=== PATIENT | male | born 1960 | race Caucasian/White ===

== ENCOUNTER 2020-04-06 21:02 | Emergency (ER) | payer BC, SELFPAY ==
[2020-04-06 21:11] VITALS: BP 116/80; PULSE 85; RESP 16; TEMP 36.3; O2SAT 95; BMI 29.0
--- NOTE | 2020-04-06 23:30 | DI.RAD.S_ITS ---
PROCEDURE: XR FINGER LT MIN 2V INDICATIONS: Foreign body in the thumb TECHNIQUE: AP hand, 2 views of the left 1st finger(s) acquired. COMPARISON: None. FINDINGS: Bones: No fractures or dislocations. No suspicious bony lesions. Soft tissues: No suspicious soft tissue calcifications. Tip of metallic fishhook noted in the palmar soft tissues of the thumb adjacent to the 1st DIP joint IMPRESSION: Tip of metallic fishhook in the soft tissues of the left thumb. Dictated by: Sherri Johnson MD, PhD on 04/07/2020 at 8:46 Approved by: Sherri Johnson MD, PhD on 04/07/2020 at 8:47
--- NOTE | 2020-04-06 23:31 | ED.UPPEXIN ---
HPI - Extremity Injury (Upper) General Chief Complaint: Extremity Injury, Upper Stated Complaint: fish hook in finger Time Seen by Provider: 04/06/20 23:27 Source: patient History of Present Illness HPI narrative: Patient complains of a fishhook in left thumb. He was able to cut off part of the fishhook. However part of the hook is still embedded in the volar surface of the interphalangeal joint area. Related Data Previous Rx's Medication Instructions Recorded cephalexin 500 mg PO TID #15 tab 04/07/20 Allergies Allergy/AdvReac Type Severity Reaction Status Date / Time Iodinated Contrast Media Allergy Severe Anaphylaxis Verified 04/07/20 00:42 Review of Systems Review of Systems Narrative: GENERAL: Denies chills, fatigue, malaise, fever, sweats. HEENT: Denies sinus pain, ear pain, sore throat, difficulty swallowing, dizziness. RESPIRATORY: Denies dyspnea, cough, wheezing, hemoptysis, sputum. CARDIOVASCULAR: Denies chest pain, palpitations, orthopnea, edema, GASTROINTESTINAL: Denies nausea, vomiting, abdominal pain, diarrhea, constipation, melena. : Denies dysuria, frequency, incontinence, hematuria, urinary retention. MUSCULOSKELETAL: Complains of thumb pain SKIN: Denies rash, skin lesions, or other NEUROLOGIC: Denies weakness, headache, numbness, change in speech, confusion, seizures, incoordination. PSYCHIATRIC: No concerning psychosocial issues. ROS Unobtainable: All systems reviewed & are unremarkable except as noted in HPI and below Patient History Social History Smoking Status: Never smoker Smoking Status: Never smoker alcohol intake frequency: holidays/special occasions only Substance Use Type: does not use Exam Narrative Exam Narrative: GENERAL: patient appears stated age. Well-nourished, well-developed patient, in no distress, not toxic EXTREMITIES: Examination left thumb, palpable foreign body at the volar surface of the IP joint. No bleeding. Sensate intact to light touch. Able to flex at the IP joint but does have mild pain. No bleeding. No discharge. NEURO: AOx3. SKIN: No rash or erythema of visible areas PSYCH: Not anxious, is cooperative Initial Vital Signs Initial Vital Signs: Vital Signs Temperature 97.4 F L 04/06/20 21:11 Pulse Rate 85 04/06/20 21:11 Respiratory Rate 16 04/06/20 21:11 Blood Pressure 116/80 04/06/20 21:11 Pulse Oximetry 95 04/06/20 21:11 Procedures Foreign Body OTHER Time Out Performed: yes Site: left and other (Thumb) Description of foreign body: fish hook Sedation/Analgesia: none Technique: removal with forceps Confirmed by:: direct visualization Complications: none Post-procedure exam: awake, alert Neurovascular: normal distal pulse, normal capillary fill, distal light touch sensation intact, distal motor function normal and no signs of compartment syndrome Course Orders Ordered: ED Orders 04/06/20 23:30 XR finger LT min 2V Stat Discontinued Medications Bacitracin (Bacitracin) 1 applic TOP NOW ONE Stop: 04/07/20 01:13 Last Admin: 04/07/20 01:18 Dose: 1 applic Documented by: BRITTNI Cephalexin HCl (Keflex) 500 mg PO NOW ONE Stop: 04/07/20 01:15 Last Admin: 04/07/20 01:18 Dose: 500 mg Documented by: BRITTNI Diphtheria/Tetanus/Acell Pertussis (Adacel) 0.5 ml IM .ONCE ONE Stop: 04/06/20 23:31 Last Admin: 04/06/20 23:40 Dose: 0.5 ml Documented by: BRITTNI Lidocaine HCl (Xylocaine 1% (Pf)) 2 ml SUBCUT NOW ONE Stop: 04/07/20 00:42 Last Admin: 04/07/20 00:50 Dose: 2 ml Documented by: BRITTNI Vital Signs Vital signs: Vital Signs - 8 hr 04/06/20 21:11 04/07/20 01:28 Temperature 97.4 F L Pulse Rate 85 70 Respiratory Rate 16 Blood Pressure 116/80 Pulse Oximetry 95 98 MDM - Extremity Injury (Upper) Differential Diagnosis Differential diagnosis: Likely other (Foreign body) Imaging Data X-ray left thumb: My Impression: Metallic foreign body volar surface of digit above the IP joint Discharge Plan Departure Patient Disposition: Home Clinical Impression: [place] injury to finger Qualifiers: Encounter type: initial encounter Laterality: left Qualified Code(s): S69.92XA - Unspecified injury of left wrist, hand and finger(s), initial encounter Discharge Date/Time: 04/07/20 01:30 Instructions: DI for Puncture Wound Activity Restrictions/Additional Instructions: Clean wound twice daily with warm soap and water then topical antibiotic. May shower. No some urgency of thumb under water. See family doctor in a week for recheck. Return if worse if any fever chills or discharge from the thumb or redness of the thumb or increased pain. Prescriptions: New cephalexin 500 mg tablet 500 mg PO TID Qty: 15 RF: 0
[2020-04-06] MEDS: TET,DIPH,PERTUSS(ACELL),VAC/PF 0.5 ML SYRINGE IM (23:40)
[2020-04-07] MEDS: LIDOCAINE 1% (PF) 2 ML SUBCUT (00:50)
[2020-04-07] MEDS: BACITRACIN OINT 0.9 GM PCKT 1 APPLIC TOP (01:18)
[2020-04-07] MEDS: cephALEXin 250 MG CAPSULE 500 MG PO (01:18)
[2020-04-07 01:28] VITALS: PULSE 70; O2SAT 98
== END 2020-04-07 01:30 | disposition home or self-care (01) ==
PROVIDERS: Emergency Provider Emergency Medicine
DX: S60.352A Superficial foreign body of left thumb, initial encounter (principal); S69.92XA Unspecified injury of left wrist, hand and finger(s), initial encounter; Z23 Encounter for immunization
CPT/HCPCS: 73140; 90471; 99283; 90715

== ENCOUNTER 2021-05-15 19:29 | Emergency (ER) | payer BC, SELFPAY ==
[2021-05-15 19:33] VITALS: BP 132/93; PULSE 106; RESP 22; TEMP 37; O2SAT 100
[2021-05-15] MEDS: SODIUM CHLORIDE 0.9% 1,000 ML 1000 ML IV ×2 (19:50→21:02)
[2021-05-15 20:06] LABS: Add Manual Diff / Slide Review NO; Basophils Absolute Auto 0 /uL (0-100); Basophils Percent Auto 0.3 % (0-2); Eosinophils Absolute Auto 100 /uL (0-450); Eosinophils Percent Auto 1.3 % (2-4); Hematocrit 44.4 % (41-53); Hemoglobin 15.3 g/dL (13.5-17.5); Lymphocytes Absolute Auto 1200 /uL (1100-4500); Lymphocytes Percent Auto 13.3 % (25-40); Mean Corpuscular HGB Conc 34.3 % (30-36); Mean Corpuscular Hemoglobin 30.9 PG (26-34); Mean Corpuscular Volume 89.9 fL (80-100); Monocytes Absolute Auto 900 /uL (0-900); Monocytes Percent Auto 9.3 % (3-14); Neutrophils Absolute Auto 7100 /uL (1500-7000); Neutrophils Percent Auto 75.8 % (50-75); Platelet Count 216 X10^3/uL (150-400); Red Blood Cell Count 4.94 X10^6/uL (4.5-5.9); Red Cell Distribution Width 11.9 % (11.6-14.8); White Blood Cell Count 9.3 X10^3/uL (4.5-11.0)
[2021-05-15 20:14] LABS: Lactate (Lactic Acid) 0.8 mmol/L (0.7-2.1)
[2021-05-15 20:15] LABS: Alanine Aminotransferase 19 IU/L (<50); Albumin 4.6 g/dL (3.5-5.0); Albumin Globulin Ratio 1.3 (1.0-2.8); Alkaline Phosphatase 72 U/L (38-126); Aspartate Aminotransferase 26 IU/L (17-59); BUN Creatinine Ratio 13.9 (6-22); Bilirubin Total 0.8 mg/dL (0.2-1.3); Blood Urea Nitrogen 11 mg/dL (9-20); Calcium 9.9 mg/dL (8.4-10.2); Carbon Dioxide 24 mmol/L (22-32); Chloride 102 mmol/L (98-107); Estimated Glomerular Filt Rate > 60.0 mL/min (>60); Globulin 3.5 g/dL (1.7-4.1); Glucose 127 mg/dL (80-110); HEMOLYSIS < 15 (0-50); Sodium 136 mmol/L (137-145); Total Protein 8.1 g/dL (6.3-8.2)
[2021-05-15 20:42] VITALS: PULSE 88; O2SAT 96
--- NOTE | 2021-05-15 20:43 | ED_ITS ---
HPI - Nausea/Vomiting/Diarrhea General Chief complaint: Nausea/Vomiting/Diarrhea Stated complaint: N/V/D Time Seen by Provider: 05/15/21 19:39 Source: patient Mode of arrival: EMS History of Present Illness HPI Narrative: 60-year-old male who just over 1 week ago surgery on his left shoulder. He has had a follow-up with Orthopedics since then. When they took the stitches out of his shoulder there was concern about a small infection and so he was started on antibiotics. He has been taking Keflex for the past couple days. Starting last evening he has had multiple episodes of vomiting and diarrhea. No fevers. Did have some nausea medicine at home that he took prior to arrival but has still been vomiting. Related Data Previous Rx's Medication Instructions Recorded cephalexin 500 mg tablet 500 mg PO TID #15 tab 04/07/20 ondansetron 4 mg disintegrating 4 mg PO Q6H PRN #14 tab 05/15/21 tablet Allergies Allergy/AdvReac Type Severity Reaction Status Date / Time Iodinated Contrast Media Allergy Severe Anaphylaxis Verified 04/07/20 00:42 Review of Systems Constitutional Constitutional: Reports as per HPI and Reports system reviewed and no additional complaints, except as documented Gastrointestinal Gastrointestinal: Reports as per HPI and Reports system reviewed and no additional complaints, except as documented Musculoskeletal Musculoskeletal: Reports system reviewed and no additional complaints, except as documented and Reports as per HPI Hematologic/Lymphatic On Anticoagulants: No Patient History Medical History Healthy adult Social History Smoking Status: Never smoker Smoking Status: Never smoker alcohol intake frequency: holidays/special occasions only Substance Use Type: does not use Exam Initial Vital Signs Initial Vital Signs: Vital Signs Temperature 98.6 F 05/15/21 19:33 Pulse Rate 106 H 05/15/21 19:33 Respiratory Rate 22 05/15/21 19:33 Blood Pressure 132/93 H 05/15/21 19:33 Pulse Oximetry 100 05/15/21 19:33 HENMT Head: normal to inspection and normocephalic Resp Effort & Inspection: normal respiratory effort Auscultation: clear to auscultation bilaterally Cardio Rate: regular rate Rhythm: regular rhythm GI Inspection: normal to inspection Palpation: soft and No tender Skin General: no rashes or lesions noted Neuro General: patient alert and patient awake Extrem General: normal to inspection and capillary refill normal Other: The incision sites in his left shoulder appear well. There are pop in place. There is no signs of erythema. Psych Appearance: grossly normal and well kempt Course Orders Ordered: ED Orders 05/15/21 19:50 Complete Blood Count AUTO DIFF Stat Comprehensive Metabolic Panel Stat Lactate (Lactic Acid) Stat 05/15/21 20:30 GI Panel (Film Array) Stat 05/15/21 20:37 Blood Culture Stat Discontinued Medications Sodium Chloride (Normal Saline 0.9%) 1,000 mls @ 1,000 mls/hr IV BOLUS ONE Stop: 05/15/21 20:38 Last Infusion: 05/15/21 21:03 Dose: 0 mls/hr Documented by: Admin: 05/15/21 19:50 Dose: 1,000 mls/hr Documented by: JEANNIE Sodium Chloride (Normal Saline 0.9%) 1,000 mls @ 1,000 mls/hr IV BOLUS ONE Stop: 05/15/21 21:56 Last Infusion: 05/15/21 22:03 Dose: 0 mls/hr Documented by: Admin: 05/15/21 21:02 Dose: 1,000 mls/hr Documented by: JEANNIE Morphine Sulfate (Morphine 4 Mg/Ml Inj) 4 mg IV NOW ONE Stop: 05/15/21 20:58 Last Admin: 05/15/21 21:02 Dose: 4 mg Documented by: JEANNIE Ondansetron HCl (Ondansetron 4 Mg/2 Ml Inj) 4 mg IV NOW ONE Stop: 05/15/21 20:58 Last Admin: 05/15/21 21:02 Dose: 4 mg Documented by: JEANNIE Ondansetron HCl (Ondansetron 4 Mg Odt Prepack) 1 bottle MISC SEEINSTR ONE Stop: 05/15/21 23:34 Last Admin: 05/15/21 23:39 Dose: 1 bottle Documented by: JEANNIE Vital Signs Vital signs: Vital Signs - 8 hr 05/15/21 19:33 05/15/21 20:42 05/15/21 20:44 Temperature 98.6 F Pulse Rate 106 H 88 86 Respiratory Rate 22 Blood Pressure 132/93 H 135/89 Pulse Oximetry 100 96 97 05/15/21 23:25 Temperature 98.2 F Pulse Rate 87 Respiratory Rate Blood Pressure 125/75 Pulse Oximetry 96 MDM - Nausea/Vomiting/Diarrhea Lab Data Attestation: I reviewed the patient's lab results. Result diagrams: 05/15/21 19:50 05/15/21 19:50 Labs: Lab Results 05/15/21 05/15/21 05/15/21 Range/Units 19:50 19:50 19:50 WBC 9.3 (4.5-11.0) X10^3/uL RBC 4.94 (4.5-5.9) X10^6/uL Hgb 15.3 (13.5-17.5) g/dL Hct 44.4 (41-53) % MCV 89.9 (80-100) fL MCH 30.9 (26-34) PG MCHC 34.3 (30-36) % RDW 11.9 (11.6-14.8) % Plt Count 216 (150-400) X10^3/uL Neut % (Auto) 75.8 H (50-75) % Lymph % (Auto) 13.3 L (25-40) % [place] % (Auto) 9.3 (3-14) % Eos % (Auto) 1.3 L (2-4) % Baso % (Auto) 0.3 (0-2) % Neut # (Auto) 7100 H (2131-6656) /uL Lymph # (Auto) 1200 (0716-7479) /uL [place] # (Auto) 900 (0-900) /uL Eos # (Auto) 100 (0-450) /uL Baso # (Auto) 0 (0-100) /uL Sodium 136 L (137-145) mmol/L Potassium 4.0 (3.4-5.1) mmol/L Chloride 102 (98-107) mmol/L Carbon Dioxide 24 (22-32) mmol/L BUN 11 (9-20) mg/dL Creatinine 0.79 (0.66-1.25) mg/dL Estimated GFR > 60.0 (>60) mL/min BUN/Creatinine Ratio 13.9 (6-22) Glucose 127 H (80-110) mg/dL Lactate 0.8 (0.7-2.1) mmol/L Calcium 9.9 (8.4-10.2) mg/dL Total Bilirubin 0.8 (0.2-1.3) mg/dL AST 26 (17-59) IU/L ALT 19 (<50) IU/L Alkaline Phosphatase 72 (38-126) U/L Total Protein 8.1 (6.3-8.2) g/dL Albumin 4.6 (3.5-5.0) g/dL Globulin 3.5 (1.7-4.1) g/dL Albumin/Globulin Ratio 1.3 (1.0-2.8) Stl C. cayetanensis PCR (Not Detect) Stool Rotavirus (PCR) (Not Detect) Stool Adenovirus (PCR) (Not Detect) Stool Astrovirus (PCR) (Not Detect) Stool Cryptosporidium PCR (Not Detect) Stl E.coli Shiga Tox PCR (Not Detect) St Sh/Enteroin Ecoli PCR (Not Detect) Stool E coli O157 PCR Stl Enterotoxigenic E PCR (Not Detect) Stool EPEC (PCR) (Not Detect) Stl E. histolytica PCR (Not Detect) Stool Giardia Lamblia PCR (Not Detect) Stool Sapovirus (PCR) (Not Detect) Stl P. shigelloides PCR (Not Detect) St Y.enterocolitica PCR (Not Detect) Stool Vibrio (PCR) (Not Detect) Stl Vibrio cholerae PCR (Not Detect) Stl Enteroaggr Ecoli PCR (Not Detect) Stl Norovirus GI/GII PCR (Not Detect) Campylobacter (PCR) (Not Detect) C. difficile Tox (PCR) (Not Detect) Salmonella (PCR) (Not Detect) 05/15/21 Range/Units 20:30 WBC (4.5-11.0) X10^3/uL RBC (4.5-5.9) X10^6/uL Hgb (13.5-17.5) g/dL Hct (41-53) % MCV (80-100) fL MCH (26-34) PG MCHC (30-36) % RDW (11.6-14.8) % Plt Count (150-400) X10^3/uL Neut % (Auto) (50-75) % Lymph % (Auto) (25-40) % [place] % (Auto) (3-14) % Eos % (Auto) (2-4) % Baso % (Auto) (0-2) % Neut # (Auto) (1388-0874) /uL Lymph # (Auto) (3546-3112) /uL [place] # (Auto) (0-900) /uL Eos # (Auto) (0-450) /uL Baso # (Auto) (0-100) /uL Sodium (137-145) mmol/L Potassium (3.4-5.1) mmol/L Chloride (98-107) mmol/L Carbon Dioxide (22-32) mmol/L BUN (9-20) mg/dL Creatinine (0.66-1.25) mg/dL Estimated GFR (>60) mL/min BUN/Creatinine Ratio (6-22) Glucose (80-110) mg/dL Lactate (0.7-2.1) mmol/L Calcium (8.4-10.2) mg/dL Total Bilirubin (0.2-1.3) mg/dL AST (17-59) IU/L ALT (<50) IU/L Alkaline Phosphatase (38-126) U/L Total Protein (6.3-8.2) g/dL Albumin (3.5-5.0) g/dL Globulin (1.7-4.1) g/dL Albumin/Globulin Ratio (1.0-2.8) Stl C. cayetanensis PCR Not detected (Not Detect) Stool Rotavirus (PCR) Not detected (Not Detect) Stool Adenovirus (PCR) Not detected (Not Detect) Stool Astrovirus (PCR) Not detected (Not Detect) Stool Cryptosporidium PCR Not detected (Not Detect) Stl E.coli Shiga Tox PCR Not detected (Not Detect) St Sh/Enteroin Ecoli PCR Not detected (Not Detect) Stool E coli O157 PCR Not Reportable Stl Enterotoxigenic E PCR Not detected (Not Detect) Stool EPEC (PCR) Not detected (Not Detect) Stl E. histolytica PCR Not detected (Not Detect) Stool Giardia Lamblia PCR Not detected (Not Detect) Stool Sapovirus (PCR) Not detected (Not Detect) Stl P. shigelloides PCR Not detected (Not Detect) St Y.enterocolitica PCR Not detected (Not Detect) Stool Vibrio (PCR) Not detected (Not Detect) Stl Vibrio cholerae PCR Not detected (Not Detect) Stl Enteroaggr Ecoli PCR Not detected (Not Detect) Stl Norovirus GI/GII PCR Not detected (Not Detect) Campylobacter (PCR) Not detected (Not Detect) C. difficile Tox (PCR) Not detected (Not Detect) Salmonella (PCR) Not detected (Not Detect) MDM Narrative Medical decision making narrative: Patient received fluids. His labs are reassuring. Stool studies do not show any signs of Clostridium difficile. I do not believe that this is an allergic reaction to his antibiotics. Had no further vomiting during his time here in the ER. No indication for switching his antibiotics. Informed him that he should continue to take probiotics. I feel that we can hold on any radiologic studies for now. He was given return precautions and follow-up instructions. He expressed understanding and agreement. Discharge Plan Departure Patient Disposition: Home Clinical Impression: Vomiting and diarrhea Instructions: DI for Nausea -- Adult, DI for Vomiting -- Adult Activity Restrictions/Additional Instructions: The stool samples were still pending at the time of your discharge. I will contact you in the morning if we need to start you on any antibiotics because of the findings of this. Increase your fluid intake. I do recommend that you continue to take probiotics. Return to the emergency department for any new or worsening symptoms Prescriptions: New ondansetron 4 mg tablet,disintegrating 4 mg PO Q6H PRN (Reason: nausea and vomiting) Qty: 14 RF: 0 No Action cephalexin 500 mg tablet 500 mg PO TID Qty: 15 RF: 0
[2021-05-15 20:44] VITALS: BP 135/89; PULSE 86; O2SAT 97
[2021-05-15] MEDS: MORPHINE 4 MG/ML INJ IV (21:02)
[2021-05-15] MEDS: ONDANSETRON 4 MG/2 ML INJ IV (21:02)
[2021-05-15 23:25] VITALS: BP 125/75; PULSE 87; TEMP 36.8; O2SAT 96
[2021-05-15] MEDS: ONDANSETRON 4 MG ODT PREPACK 1 BOTTLE MISC (23:39)
[2021-05-16 00:40] LABS: Adenovirus F 40/41 Not Detected (Not Detect); Astrovirus Not Detected (Not Detect); Campylobacter Not Detected (Not Detect); Clostridium difficile toxin AB Not Detected (Not Detect); Cryptosporidium Not Detected (Not Detect); Cyclospora cayetanensis Not Detected (Not Detect); Entamoeba histolytica Not Detected (Not Detect); Enteroaggregative E.coli Not Detected (Not Detect); Enteropathogenic E.coli Not Detected (Not Detect); Enterotoxigenic E.coli It/st Not Detected (Not Detect); Giardia lamblia Not Detected (Not Detect); Norovirus GI/GII Not Detected (Not Detect); Plesiomonsa shigelloides Not Detected (Not Detect); Rotavirus A Not Detected (Not Detect); Salmonella Not Detected (Not Detect); Sapovirus Not Detected (Not Detect); Shiga-like toxin-prod E.coli Not Detected (Not Detect); Shigella/Enteroinvasive E.coli Not Detected (Not Detect); Vibrio Not Detected (Not Detect); Vibrio cholerae Not Detected (Not Detect); Yersinia enterocolitica Not Detected (Not Detect)
== END 2021-05-15 23:45 | disposition home or self-care (01) ==
PROVIDERS: Emergency Provider Emergency Medicine
DX: R11.2 Nausea with vomiting, unspecified (principal); R19.7 Diarrhea, unspecified
CPT/HCPCS: 36415; 80053; 83605; 85025; 87040; 87507; 96361; 96374; 96375; 99284; J2270; J2405

== ENCOUNTER → 2022-02-05 17:20 | Outpatient (CLI) | payer BC, SELFPAY | PROVIDERS: Visit Provider Physician Assistant | DX: L98.9 Disorder of the skin and subcutaneous tissue, unspecified (principal) | CPT/HCPCS: 87070; 87075; 87205 ==

== ENCOUNTER 2022-11-15 09:02 | Emergency (ER) | payer BC, SELFPAY ==
[2022-11-15] VITALS (15 sets, daily range): BP systolic 113–149; BP diastolic 68–88; PULSE 83–92; RESP 11–20; TEMP 36.8; O2SAT 93–99; BMI 27.1
[2022-11-15] MEDS: SODIUM CHLORIDE 0.9% 1,000 ML 1000 ML IV (09:35)
[2022-11-15 09:42] LABS: Add Manual Diff / Slide Review NO; Basophils Absolute Auto 100 /uL (0-100); Basophils Percent Auto 0.7 % (0-2); Eosinophils Absolute Auto 100 /uL (0-450); Eosinophils Percent Auto 1.3 % (2-4); Hematocrit 44.1 % (41-53); Lymphocytes Absolute Auto 2700 /uL (1100-4500); Lymphocytes Percent Auto 38.3 % (25-40); Mean Corpuscular HGB Conc 34.1 % (30-36); Mean Corpuscular Hemoglobin 29.5 PG (26-34); Mean Corpuscular Volume 86.7 fL (80-100); Monocytes Absolute Auto 600 /uL (0-900); Monocytes Percent Auto 8.1 % (3-14); Neutrophils Absolute Auto 3700 /uL (1500-7000); Neutrophils Percent Auto 51.6 % (50-75); Platelet Count 243 X10^3/uL (150-400); Red Blood Cell Count 5.09 X10^6/uL (4.5-5.9); Red Cell Distribution Width 13.5 % (11.6-14.8); White Blood Cell Count 7.1 X10^3/uL (4.5-11.0)
[2022-11-15 10:00] LABS: Alanine Aminotransferase 30 IU/L (<50); Albumin 4.6 g/dL (3.5-5.0); Albumin Globulin Ratio 1.3 (1.0-2.8); Alkaline Phosphatase 79 U/L (38-126); Aspartate Aminotransferase 28 IU/L (17-59); BUN Creatinine Ratio 21.3 (6-22); Bilirubin Total 0.4 mg/dL (0.2-1.3); Blood Urea Nitrogen 16 mg/dL (9-20); Carbon Dioxide 29 mmol/L (22-32); Chloride 98 mmol/L (98-107); Estimated Glomerular Filt Rate > 60 mL/min (>60); Globulin 3.6 g/dL (1.7-4.1); Glucose 107 mg/dL (80-110); HEMOLYSIS < 15 (0-50); Lipase 84 U/L (23-300); Sodium 137 mmol/L (137-145); Total Protein 8.2 g/dL (6.3-8.2)
--- NOTE | 2022-11-15 11:09 | DI.CT.S_ITS ---
PROCEDURE: CT ABDOMEN PELVIS WO CON INDICATIONS: LLQ pain. GI Bleed. TECHNIQUE: Noncontrast 5 mm thick sections acquired from the diaphragms to the symphysis. 5 mm coronal and sagittal reformats were then performed. For radiation dose reduction, the following was used: automated exposure control, adjustment of mA and/or kV according to patient size. COMPARISON: None. FINDINGS: Image quality: Suboptimal due to noncontrast technique. ABDOMEN: Lung bases: Lung bases are clear. Heart size is normal. Solid organs: Liver is normal in size. Gallbladder is unremarkable . Pancreas is normal in contours. Spleen is normal in size. No adrenal nodules. Kidneys are normal in size, without hydronephrosis or nephrolithiasis. Peritoneum and bowel: Unenhanced bowel loops demonstrate normal wall thickness and caliber. No free fluid or air. No evidence of diverticulitis. Nodes and vessels: No retroperitoneal or mesenteric adenopathy by size criteria. Aorta and inferior vena cava are normal in caliber. Miscellaneous: Small, midline ventral hernia containing fat PELVIS: Genitourinary: Bladder wall thickness is normal. Miscellaneous: No inguinal hernias or adenopathy. Bones: No suspicious bony lesions. No vertebral body compression fractures. Surgical fusion L3 through L5. Suspect donor site of bone graft off the right iliac bone. IMPRESSION: Suboptimal evaluation due to noncontrast technique. Active GI hemorrhage cannot be excluded. No evidence of colitis or diverticulitis. Dictated by: Enoc Drake M.D. on 11/15/2022 at 11:33 Approved by: Enoc Drake M.D. on 11/15/2022 at 11:36
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
[2022-11-15 11:49] LABS: Bacteria Urine None Seen; Culture Indicated Urine Cult Not Indicated; RBC Urine 0-1/HPF (0-5/HPF); Squamous Epithelial Cell Urine None Seen (0-5/HPF); WBC Urine 0-1/HPF (0-5/HPF)
[2022-11-15] MEDS: ACETAMINOPHEN 325 MG TABLET 650 MG PO (14:29)
[2022-11-15] MEDS: ONDANSETRON 4 MG ODT PO (14:29)
== END 2022-11-15 15:21 | disposition home or self-care (01) ==
PROVIDERS: Emergency Provider Emergency Medicine; PCP Family Medicine
DX: K92.2 Gastrointestinal hemorrhage, unspecified (principal); K29.70 Gastritis, unspecified, without bleeding; R19.7 Diarrhea, unspecified; R10.32 Left lower quadrant pain
CPT/HCPCS: 36415; 74176; 80053; 81003; 81015; 82272; 83690; 85025; 93005; 96360; 99284

== ENCOUNTER → 2023-03-26 06:57 | Outpatient (CLI) | payer BC, SELFPAY ==
[2023-03-26 07:53] LABS: Add Manual Diff / Slide Review NO; Basophils Absolute Auto 0 /uL (0-100); Basophils Percent Auto 0.7 % (0-2); Eosinophils Absolute Auto 200 /uL (0-450); Eosinophils Percent Auto 2.9 % (2-4); Hematocrit 41.6 % (41-53); Hemoglobin 14.7 g/dL (13.5-17.5); Lymphocytes Absolute Auto 2500 /uL (1100-4500); Lymphocytes Percent Auto 42.2 % (25-40); Mean Corpuscular HGB Conc 35.2 % (30-36); Monocytes Absolute Auto 600 /uL (0-900); Monocytes Percent Auto 10.7 % (3-14); Neutrophils Absolute Auto 2600 /uL (1500-7000); Neutrophils Percent Auto 43.5 % (50-75); Platelet Count 203 X10^3/uL (150-400); Red Blood Cell Count 4.73 X10^6/uL (4.5-5.9); Red Cell Distribution Width 13.3 % (11.6-14.8); White Blood Cell Count 5.9 X10^3/uL (4.5-11.0)
[2023-03-26 08:15] LABS: Cholesterol 193 mg/dL (140-199); HDL Cholesterol 52 mg/dL (40-60); LDL Cholesterol Calculated 87 mg/dL (<100); Triglycerides 271 mg/dL (35-150)
[2023-03-26 08:39] LABS: TSH w/ Reflex to FT4 4.58 uIU/mL (0.47-4.68)
[2023-03-26 10:32] LABS: Creatinine Urine Random 304.9 mg/dL
[2023-03-26 10:37] LABS: Microalbumi Creatinin Ratio Ur 2.9 ug/mg CR (<30); Microalbumin Urine Random 0.9 mg/dL (0-1.6)
[2023-03-27 02:57] LABS: x Labcorp Estim. Avg Glu (eAG) 123 mg/dL (.); x Labcorp Hemoglobin A1c 5.9 % (4.8-5.6)
== END ==
PROVIDERS: PCP Family Medicine; Referring Provider Family Medicine; Visit Provider Family Medicine
DX: G89.29 Other chronic pain (principal); I10 Essential (primary) hypertension; M54.50 Low back pain, unspecified; R73.9 Hyperglycemia, unspecified; Z98.1 Arthrodesis status
CPT/HCPCS: 80061; 82043; 82570; 83036; 84443; 85025

== ENCOUNTER → 2023-09-25 08:56 | Outpatient (CLI) | payer BC, SELFPAY | PROVIDERS: PCP Family Medicine; Visit Provider Nurse Practitioner Family | DX: J02.9 Acute pharyngitis, unspecified (principal) | CPT/HCPCS: 87070 ==

== ENCOUNTER → 2024-03-19 07:14 | Outpatient (CLI) | payer MEDICARE, OTHER, SELFPAY ==
--- NOTE | 2024-03-19 07:16 | DI.US.S_ITS ---
PROCEDURE: US CAROTID DOPPLER BI INDICATIONS: VISION CHANGES TECHNIQUE: Color and pulse Doppler interrogation was performed of both carotid systems, with image documentation and velocity measurements. COMPARISON: None. FINDINGS: Stenosis calculations are based on SRU (Society of Radiologists in Ultrasound) criteria. Right side: Brachial blood pressure: 132/87 mm Hg. Common carotid artery peak systolic velocity: 80 cm/sec. Internal carotid artery peak systolic velocity: 77 cm/sec. Internal carotid artery end diastolic velocity: 20 cm/sec. External carotid artery peak systolic velocity: 65 cm/sec. ICA/CCA peak systolic ratio: 1.0. Arthur scale imaging description: No significant atherosclerotic plaques are seen. Percent internal carotid artery stenosis: Normal. Vertebral artery: Flow direction is antegrade. Left side: Brachial blood pressure: 131/83 mm Hg. Common carotid artery peak systolic velocity: 101 cm/sec. Internal carotid artery peak systolic velocity: 57 cm/sec. Internal carotid artery end diastolic velocity: 24 cm/sec. External carotid artery peak systolic velocity: 74 cm/sec. ICA/CCA peak systolic ratio: 0.6. Arthur scale imaging description: Mild atherosclerotic plaques are noted in distal common carotid artery/carotid bulb. Percent internal carotid artery stenosis: Less than 50 percent.. Vertebral artery: Flow direction is antegrade. IMPRESSION: 1. No hemodynamically significant stenosis are seen in right internal carotid artery. 2. Less than 50 percent stenosis is seen in proximal left internal carotid artery. 3. Antegrade flow is seen in bilateral vertebral arteries. Dictated by: Jeffry Donald M.D. on 03/19/2024 at 11:06 Approved by: Jeffry Donald M.D. on 03/19/2024 at 11:08
== END ==
PROVIDERS: PCP Family Medicine; Referring Provider Physician Assistant; Visit Provider Physician Assistant
DX: I65.22 Occlusion and stenosis of left carotid artery (principal); H53.9 Unspecified visual disturbance
CPT/HCPCS: 93880

== ENCOUNTER → 2024-11-12 09:10 | Outpatient (CLI) | payer MEDICARE, OTHER, SELFPAY ==
[2024-11-12 09:54] LABS: Add Manual Diff / Slide Review NO; Basophils Absolute Auto 100 /uL (0-100); Basophils Percent Auto 1.1 % (0-2); Eosinophils Absolute Auto 200 /uL (0-450); Eosinophils Percent Auto 5.5 % (2-4); Hematocrit 39.2 % (41-53); Hemoglobin 13.6 g/dL (13.5-17.5); Lymphocytes Absolute Auto 2000 /uL (1100-4500); Lymphocytes Percent Auto 43.9 % (25-40); Mean Corpuscular HGB Conc 34.7 % (30-36); Mean Corpuscular Hemoglobin 31.5 PG (26-34); Mean Corpuscular Volume 90.9 fL (80-100); Monocytes Absolute Auto 500 /uL (0-900); Monocytes Percent Auto 11.2 % (3-14); Neutrophils Absolute Auto 1800 /uL (1500-7000); Neutrophils Percent Auto 38.3 % (50-75); Platelet Count 216 X10^3/uL (150-400); Red Blood Cell Count 4.31 X10^6/uL (4.5-5.9); Red Cell Distribution Width 12.6 % (11.6-14.8); White Blood Cell Count 4.6 X10^3/uL (4.5-11.0)
[2024-11-12 10:04] LABS: Hemoglobin A1C% w Est Avg Glu 5.5 % (4.0-6.0)
[2024-11-12 10:13] LABS: HEMOLYSIS < 15 (0-50); Iron 115 ug/dL (49-181)
[2024-11-12 10:17] LABS: Alanine Aminotransferase 31 IU/L (<50); Albumin 4.2 g/dL (3.5-5.0); Albumin Globulin Ratio 1.4 (1.0-2.8); Alkaline Phosphatase 71 U/L (38-126); Aspartate Aminotransferase 31 IU/L (17-59); Bilirubin Total 0.5 mg/dL (0.2-1.3); Blood Urea Nitrogen 21 mg/dL (9-20); Carbon Dioxide 25 mmol/L (22-32); Chloride 105 mmol/L (98-107); Cholesterol 203 mg/dL (140-199); Estimated Glomerular Filt Rate > 60 mL/min (>60); Globulin 2.9 g/dL (1.7-4.1); Glucose 113 mg/dL (80-110); HDL Cholesterol 39 mg/dL (40-60); HEMOLYSIS < 15 (0-50); Potassium 4.5 mmol/L (3.4-5.1); Sodium 139 mmol/L (137-145); Total Protein 7.1 g/dL (6.3-8.2)
[2024-11-12 10:24] LABS: Triglycerides 653 mg/dL (35-150)
[2024-11-12 10:25] LABS: Percent Iron Saturation 42 % (20-50); Total Iron Binding Capacity 273 ug/dL (261-462); Transferrin 227 mg/dL (206-381)
[2024-11-12 10:45] LABS: Prostate Specific Antigen Scrn 4.52 ng/mL (0.1-4.0)
[2024-11-12 11:19] LABS: Folate 4.2 ng/mL (2.76-20.0); Vitamin B12 729 pg/mL (239-931)
[2024-11-24 10:11] LABS: Percent Free Testosterone 2.83 % (1.50-4.20); Testosterone Free 9.59 ng/dL (5.00-21.00)
== END ==
PROVIDERS: PCP Family Medicine; Referring Provider Family Medicine; Visit Provider Family Medicine
DX: R79.89 Other specified abnormal findings of blood chemistry (principal); Z12.5 Encounter for screening for malignant neoplasm of prostate; D64.9 Anemia, unspecified; I10 Essential (primary) hypertension; R73.9 Hyperglycemia, unspecified
CPT/HCPCS: 36415; 80053; 80061; 82607; 82746; 83036; 83540; 83550; 84402; 84403; 85025; G0103

== ENCOUNTER 2025-07-16 09:22 | Day surgery (SDC) | payer MEDICARE, OTHER, SELFPAY ==
[2025-07-06 13:10] VITALS: BMI 28.0
--- NOTE | 2025-07-16 | PATH_ITS ---
[facility] Accession Number: [id number] No. of containers..04 Tissue . 01 Material submitted: . PART A: colon - 100CM POLYP PART B: colon - CECAL POLYP PART C: colon - 65CM POLYP PART D: colon - 50CM POLYP . 01 Diagnosis: A. COLON POLYP AT 100 CM: Tubular adenoma. . B. CECAL POLYP: Tubular adenoma. . C. COLON POLYP AT 65 CM: Tubular adenoma. . D. COLON POLYP AT 50 CM: Tubulovillous adenoma. Negative for high-grade dysplasia or malignancy. MRV 07/21/2025 1535 Local . 01 Electronically signed: . Jacinto Echavarria MD, PhD, Pathologist NPI- [id number] . 01 Gross description: . A. Received in formalin with two identifiers and 100 cm polyp is a single rushing soft tissue fragment, 0.7 cm in greatest dimension, submitted entirely in A1. B. Received in formalin with two identifiers and cecal polyps are two rushing soft tissue fragments, 0.1-0.2 cm in greatest dimension, submitted entirely in B1. C. Received in formalin with two identifiers and 65 cm polyp is a single rushing soft tissue fragment, 0.6 cm in greatest dimension, submitted entirely in C1. D. Received in formalin with two identifiers and 50 cm polyp is a single rushing soft tissue fragment, 0.8 cm in greatest dimension, submitted entirely in D1. ([id number]) /MRV 07/17/2025 1724 Local . 01 Pathologist provided ICD-10: D12.6 . 01 CPT . 504133, 017101, [id number], [id number] Specimen Comment: A courtesy copy of this report has been sent to [facility] Pathology Performed at: [address] [facility], [place], [place] [id number] MD Steve Mace MD Phone: [phone]
--- NOTE | 2025-07-16 06:32 | PM.HP.IH.1 ---
History of Present Illness History of Present Illness Date Patient Seen: 07/16/25 Chief complaint: SDC Narrative: Presents for screening colonoscopy, possible hemorrhoid banding today. [facility] Medical History (Updated 07/16/25 @ 06:32 by Fidencio Chan MD) Fibromyalgia Complete rotator cuff tear of left shoulder Serotonin syndrome DAVID on CPAP Depression SAKINA (iron deficiency anemia) IBS (irritable bowel syndrome) History of Helicobacter pylori infection (08/29/22) GERD (gastroesophageal reflux disease) Dupuytren contracture Cervical spinal stenosis BCC (basal cell carcinoma) Allergic rhinitis Asthma Vertebral fracture, osteoporotic Osteoporosis Psoriatic arthritis Osteoarthritis ADHD Welcome to Medicare preventive visit COVID-19 BPH (benign prostatic hyperplasia) Numbness and tingling of both feet Gastritis Insomnia Ankylosing spondylitis Chronic back pain Hypertension Hyperglycemia Healthy adult Surgical History (Updated 07/06/25 @ 12:58 by Lesley Moses RN) S/P insertion of spinal cord stimulator (2017) History of left hip replacement (07/2021) History of lumbar surgery Hx of laminectomy (10/2021) H/O spinal fusion Social History Smoking Status: Never smoker Meds Home Medications and Allergies Home Medications ?Medication ?Instructions ?Recorded ?Confirmed ?Type trazodone 50 mg tablet 50 mg PO BEDTIME PRN sleep #60 tabs 12/14/22 05/25/25 Rx Parking Permit... #1 ea 05/30/23 05/25/25 Rx ascorbate calcium (vitamin C) 500 1 g PO Q6H 10/10/24 05/25/25 History mg tablet cholecalciferol (vitamin D3) 10 10 mcg PO DAILY 10/10/24 05/25/25 History mcg (400 unit) capsule cyanocobalamin (vitamin B-12) 1,000 mcg PO DAILY 10/10/24 05/25/25 History 1,000 mcg capsule ibuprofen 200 mg capsule 200 mg PO Q6H PRN 10/10/24 05/25/25 History naltrexone 4.5 mg capsule (Naltrex) 5 mg (1.1111 x 4.5 mg) PO DAILY 01/01/25 05/25/25 Rx #90 caps fluoxetine 40 mg capsule 40 mg PO DAILY #90 caps 01/30/25 05/25/25 Rx losartan 50 mg tablet 50 mg PO DAILY #90 tabs 01/30/25 05/25/25 Rx triamcinolone acetonide 0.1 % 0.6 cm mucous membrane BID #5 grams 03/31/25 05/25/25 Rx dental paste diphenoxylate-atropine 2.5 1 tab PO TID PRN diarrhea #20 tabs 04/06/25 05/25/25 Rx mg-0.025 mg tablet dextroamphetamine-amphetamine ER 30 mg PO DAILY #30 caps 05/08/25 05/25/25 Rx 30 mg 24hr capsule,extend release (Adderall XR) dextroamphetamine-amphetamine ER 30 mg PO DAILY #30 caps 05/08/25 05/25/25 Rx 30 mg 24hr capsule,extend release (Adderall XR) dextroamphetamine-amphetamine ER 30 mg PO DAILY #30 caps 05/08/25 05/25/25 Rx 30 mg 24hr capsule,extend release (Adderall XR) sodium,potassium,mag sulfates 17.5 See Rx Instructions PO .COMPLEX 05/26/25 Rx gram-3.13 gram-1.6 gram oral soln #354 mL (Suprep Bowel Prep Kit) dextroamphetamine-amphetamine ER 30 mg (2 x 15 mg) PO QAM #60 caps 06/04/25 Rx 15 mg 24hr capsule,extend release (Adderall XR) dextroamphetamine-amphetamine 30 30 mg PO BID #60 tabs 07/07/25 Rx mg tablet (Adderall) Allergies Allergy/AdvReac Type Severity Reaction Status Date / Time Iodinated Contrast Media Allergy Severe Anaphylaxis Verified 05/25/25 13:04 nirmatrelvir (From Paxlovid) Allergy Intermediate ITCHING Verified 05/25/25 13:04 ritonavir (From Paxlovid) Allergy Intermediate ITCHING Verified 05/25/25 13:04 diphenhydramine Allergy Rapid Verified 07/06/25 13:03 heart beat, HTN. potassium iodide Allergy Angioedema. Verified 07/06/25 13:03 cephalexin (From Keflex) AdvReac Severe Diarrhea Verified 05/25/25 13:04 cefdinir AdvReac Palpitation Verified 07/06/25 13:03 s. codeine AdvReac Palpitation Verified 07/06/25 13:03 s. Exam Narrative Exam Narrative: Const General: healthy appearing, comfortable and no acute distress Orientation: alert and oriented x3 HENMT Ears: hearing grossly normal bilaterally Eyes Visual Zheng: normal visual zheng by confrontation Conjunctivae: conjunctivae normal Sclera: sclerae normal EOM: EOM intact bilaterally Resp Effort & Inspection: normal respiratory effort and able to speak in complete sentences Cardio Rate: regular rate GI Palpation: soft (NT) Extrem General: no pedal edema and no calf tenderness Assessment & Plan Assessment and plan (1) Hemorrhoid: Qualifiers: Hemorrhoid type: fourth degree Qualified Code(s): K64.3 - Fourth degree hemorrhoids Status: Acute (2) Encounter for screening colonoscopy: Status: Acute Plan Plan colonoscopy, possible biopsy, possible internal hemorrhoid banding. The risks, benefits and options regarding the procedure were explained to the patient in detail. Risk discussion included but not limited to: bleeding, perforation, unable to reach cecum, missed lesion, pelvic sepsis, urinary retention, hemorrhoid recurrence. The patient was encouraged to ask questions and they were answered to their satisfaction. The patient understands and is agreeable to proceed. Time-Based Coding :: [TOTAL MINUTES] spent with patient and on the chart (including review of chart, obtaining history, exam, reviewing outside data, placing orders, documenting exam and treatment plan, and counseling patient) on [DATE]. [employer] Document charge(s): Yes Charge Codes Inpatient/observation care including admit and discharge same day: [id number]
[2025-07-16 09:59] VITALS: BP 147/96; PULSE 96; RESP 20; TEMP 36.2; O2SAT 98
[2025-07-16] MEDS: LACTATED RINGERS 1,000 ML 42 ML IV (10:08)
--- NOTE | 2025-07-16 10:55 | P.OP.COLON_ITS ---
Operative Date/Time/Diagnoses Date of procedure: 07/16/25 Time of procedure: 11:34 Pre-op diagnosis: Screening colonoscopy Post-op diagnosis: other (colon polyps, internal hemorrhoids) Procedure & Clinicians Study performed: Screening colonoscopy, polypectomy, internal hemorrhoid banding Same procedure(s) as scheduled: Yes Indications: 64yo M, screening colonoscopy Surgeon: Fidencio Chan Anesthesia Type: MAC +/- Procedure Notes SCOAP/Timeout: Performed Procedure in detail: Colonoscopy Patient placed in left lateral recumbent position. Time out was performed. Procedural sedation was administered by anesthesia. Examination began with a thorough inspection of the perianal area. There was no evidence of fissures, fistulae, external hemorrhoids or cutaneous malignancy. The colonoscope was then placed into the rectum and the lumen was insufflated with carbon dioxide. The scope was carefully advanced forward. Ultimately the cecum was intubated and confirmed by identification of the ileocecal valve, the appendiceal orifice and the confluence of the taenia. The scope was then slowly withdrawn examining the colon thoroughly in all directions. In the rectum, retroflexion of the scope was performed for inspection of the distal rectum and anal canal. ?Significant colonoscopy findings: ?1. Quality of the preparation-good, [place] 2-3, improved with irrigation/suction ?2. Three polyps: one in cecum, 5mm, sessile, benign appearing; two (50cm, 65cm) 1cm, pedunculated, adenomatous; all three polyps removed with cold snare and retrieved for pathology; polyp at 50cm required clip for hemostasis. 3. Two large internal hemorrhoid columns banded at 3 o'clock and 7 o'clock positions Scope withdrawal time: 26 minutes Findings: internal hemorrhoids and polyp(s) Specimen(s): other (polyps) Estimated Blood Loss: 5 Complications: none Impression: Colon polyps Internal hemorrhoids Plan to continue every 2 year screening due to size and number of polyps Post-procedure Recommendations: Other recommendation(s) (Colonoscopy in 2 years) Plan for aftercare: PACU then home Follow up: as needed Disposition: PACU
[2025-07-16 11:38] VITALS: BP 118/79; PULSE 86; RESP 16; TEMP 36.7; O2SAT 96
[2025-07-16 11:40] VITALS: BP 119/82; PULSE 84; RESP 16; O2SAT 96
[2025-07-16 11:41] VITALS: BP 126/83; PULSE 85; RESP 16; O2SAT 98
[2025-07-16 11:53] VITALS: BP 127/68; PULSE 71; RESP 16; O2SAT 98
== END 2025-07-16 11:54 | disposition home or self-care (01) ==
PROVIDERS: PCP Family Medicine; Referring Provider Surgery; Visit Provider Surgery
PROC: 0DJD8ZZ Inspection of Lower Intestinal Tract, Via Natural or Artificial Opening Endoscopic (ICD-10-PCS; CPT 45378; principal; 2025-07-16 10:30)
DX: Z12.11 Encounter for screening for malignant neoplasm of colon (principal); K64.8 Other hemorrhoids; D12.6 Benign neoplasm of colon, unspecified; D12.0 Benign neoplasm of cecum
CPT/HCPCS: 45385; 46221; J2250; J2704; J7120